=== PATIENT | female | born 1995 | race African-American/Black ===

== ENCOUNTER → 2016-12-12 17:50 | Emergency (ER) | payer OTHER ==
[~2016-12-12] VITALS: Ht 160 cm; Wt 65.0 kg
[~2016-12-12 17:50] MED LIST: ADVAIR 250/501 DISK IH; ALBUTEROL SULF8.5 GM IH; ENDOCET 5-3251 EACH PO; HEMOCYTE324 MG PO; IBUPROFEN800 MG PO; IRON PO; IRON325 M1 PO; IRON325 MG PO; LEVETIRACETAM500 MG PO; MACROBID100 MG PO; METRONIDAZOLE500 MG PO; MOTRIN600 MG PO; Motrin PO; OMEPRAZOLE40 M1 PO; PERCOCET 5/31 TABLET PO; PRENATAL TABLE1 EAC3 PO; Percocet 5/325,Endoc PO; TESSALON PERLE100 MG PO; Theragran PO; ZITHROMAX Z-PA250 MG PO; ZOFRAN ODT4 MG PO; ZOFRAN4 MG PO
[2016-12-12 17:58] VITALS: BP 127/77
== END | disposition left against medical advice (07) ==
LOC: EME 17:50
DX: R45.83 Excessive crying of child, adolescent or adult (principal); Z53.21 Procedure and treatment not carried out due to patient leaving prior to being seen by health care provider

== ENCOUNTER 2017-04-14 09:23 | Emergency (ER) | payer OTHER ==
[~2017-04-14] VITALS: Ht 162.6 cm; Wt 66.6 kg
[2017-04-14 10:58] VITALS: BP 112/68
== END 2017-04-14 10:59 | disposition home or self-care (01) ==
LOC: EME 09:23
DX: F41.9 Anxiety disorder, unspecified (principal); F33.1 Major depressive disorder, recurrent, moderate; Z91.19 Patient's noncompliance with other medical treatment and regimen; J45.909 Unspecified asthma, uncomplicated
CPT/HCPCS: 90839; 99281; 99284

== ENCOUNTER 2017-04-27 10:14 | Emergency (ER) | payer OTHER ==
[~2017-04-27] VITALS: Ht 162.6 cm; Wt 65.0 kg
[2017-04-27 12:12] LABS: HEMATOCRIT 34.7 % (36.0-46.0); MCH 28.3 PG (29.0-34.0); MCHC 32.3 G/DL (30.0-36.0); MCV 87.6 FL (83-99); MEAN PLAT.VOLUME 13.5 uM^3 (9.5-12.4); PLATELET COUNT 140 K/uL (156-360); RBC DIS.WIDTH-CV 13.5 % (11.8-14.6); RBC DIS.WIDTH-SD 43.4 % (39-53); RED BLOOD COUNT 3.96 M/uL (3.80-5.20); WHITE BLOOD COUNT 5.2 K/uL (4.1-10.2)
[2017-04-27 12:21] LABS: ADD MIUA? YES; BILIRUBIN NEGATIVE; BLOOD NEGATIVE; COLOR YELLOW ((YELLOW)); GLUCOSE (STRIP) NEGATIVE; KETONES 5; LEUKOCYTES NEGATIVE; NITRITE NEGATIVE; PROTEIN (STRIP) 30; SPECIFIC GRAVITY 1.024 (1.000-1.030)
[2017-04-27 12:22] LABS: CHLORIDE 106 mEq/L (99-109); POTASSIUM 3.4 mEq/L (3.7-5.4); SODIUM 138 mEq/L (136-147)
[2017-04-27 12:24] LABS: GLUCOSE 88 mg/dL (70-99)
[2017-04-27 12:25] LABS: ANION GAP 7 MEQ/L (2-14)
[2017-04-27 12:28] LABS: GFR ESTIMATE (CALCULATED) > 59 mL/min/; UREA NITROGEN (BUN) 5 mg/dL (9-23)
[2017-04-27 12:34] LABS: BACTERIA RARE /HPF; EPITHELIAL CELLS RARE /HPF; MUCUS 4+ /LPF; RED BLOOD CELLS 0-5 /HPF (0-5); WHITE BLOOD CELLS 0-5 /HPF (0-5)
[2017-04-27] MEDS ORDERED: ZOFRAN ODT4 MG PO (12:40)
[2017-04-27] MEDS ORDERED: TESSALON PERLE100 MG PO (12:40)
[2017-04-27 12:41] LABS: QUANTITATIVE HCG < 4.0 MIU/ML
[2017-04-27 13:39] VITALS: BP 112/78
== END 2017-04-27 13:40 | disposition home or self-care (01) ==
LOC: EME 10:14
PROVIDERS: Nurse Practitioner Family
DX: R11.0 Nausea (principal); R42 Dizziness and giddiness; G40.909 Epilepsy, unspecified, not intractable, without status epilepticus
CPT/HCPCS: 71020; 80048; 81003; 84702; 85027; 94640; 99281; 99284; J2405; J7030

== ENCOUNTER 2017-11-16 11:46 | Emergency (ER) | payer OTHER ==
[~2017-11-16] VITALS: Ht 162.6 cm; Wt 55.9 kg
[2017-11-16] MEDS ORDERED: LIDODERM 5% P1 PATCH TD (14:35)
[2017-11-16 14:47] VITALS: BP 96/52
== END 2017-11-16 14:47 | disposition home or self-care (01) ==
LOC: EME 11:46
DX: S30.0XXA Contusion of lower back and pelvis, initial encounter (principal); W10.9XXA Fall (on) (from) unspecified stairs and steps, initial encounter; Y92.009 Unspecified place in unspecified non-institutional (private) residence as the place of occurrence of the external cause; Z33.1 Pregnant state, incidental; Z3A.16 16 weeks gestation of pregnancy
CPT/HCPCS: 99281; 99283

== ENCOUNTER 2017-11-25 22:55 | Emergency (ER) | payer OTHER ==
[~2017-11-25] VITALS: Ht 160 cm; Wt 57.4 kg
[~2017-11-25 22:55] MED LIST changes: +LIDODERM 5% P1 PATCH TD
[2017-11-26 00:51] VITALS: BP 101/62
[2017-11-26] MEDS ORDERED: ATIVAN1 MG PO (01:36)
== END 2017-11-26 01:57 | disposition home or self-care (01) ==
LOC: EME 22:55
DX: O99.342 Other mental disorders complicating pregnancy, second trimester (principal); F32.9 Major depressive disorder, single episode, unspecified; O9A.212 Injury, poisoning and certain other consequences of external causes complicating pregnancy, second trimester; S60.222A Contusion of left hand, initial encounter; S60.221A Contusion of right hand, initial encounter; W22.8XXA Striking against or struck by other objects, initial encounter; O99.332 Smoking (tobacco) complicating pregnancy, second trimester; F17.200 Nicotine dependence, unspecified, uncomplicated; R51 Headache; R10.9 Unspecified abdominal pain; Z3A.17 17 weeks gestation of pregnancy
CPT/HCPCS: 99281; 99284

== ENCOUNTER 2018-01-29 14:24 | Outpatient (CLI) | payer OTHER ==
[~2018-01-29] VITALS: Ht 160 cm; Wt 62.6 kg
[~2018-01-29 14:24] MED LIST changes: +ATIVAN1 MG PO
[2018-01-29 14:30] VITALS: BP 114/68
[2018-01-29 15:42] LABS: HEMATOCRIT 31.7 % (36.0-46.0); HEMOGLOBIN 10.6 G/DL (11.9-15.5); MCH 30.1 PG (29.0-34.0); MCHC 33.4 G/DL (30.0-36.0); MCV 90.1 FL (83-99); PLATELET COUNT 123 K/uL (156-360); RBC DIS.WIDTH-CV 14.5 % (11.8-14.6); RBC DIS.WIDTH-SD 47.3 % (39-53); RED BLOOD COUNT 3.52 M/uL (3.80-5.20); WHITE BLOOD COUNT 7.9 K/uL (4.1-10.2)
[2018-01-29 15:52] LABS: ALBUMIN 3.8 g/dL (3.2-4.8); CHLORIDE 109 mEq/L (99-109); POTASSIUM 3.6 mEq/L (3.7-5.4); SODIUM 138 mEq/L (136-147)
[2018-01-29 15:54] LABS: GLUCOSE 100 mg/dL (70-99); TOTAL PROTEIN 7.1 g/dL (6.4-8.3)
[2018-01-29 15:56] LABS: TOTAL BILIRUBIN 0.3 mg/dL (0.0-1.0)
[2018-01-29 15:57] LABS: SERUM ETHYL ALCOHOL < 10 mg/dL
[2018-01-29 15:58] LABS: ALKALINE PHOSPHATASE 75 IU/L (3-129); CREATININE 0.6 mg/dL (0.6-1.3); GFR ESTIMATE (CALCULATED) > 59 mL/min/
[2018-01-29 15:59] LABS: UREA NITROGEN (BUN) 7 mg/dL (9-23)
[2018-01-29 16:00] LABS: AST (GOT) 23 IU/L (2-34)
[2018-01-29 16:01] LABS: ALT (GPT) 16 IU/L (3-49)
[2018-01-29 19:41] LABS: APPEARANCE SL.HAZY ((CLEAR)); BILIRUBIN NEGATIVE; BLOOD NEGATIVE; COLOR YELLOW ((YELLOW)); GLUCOSE (STRIP) NEGATIVE; KETONES 80; LEUKOCYTES TRACE; NITRITE NEGATIVE; PROTEIN (STRIP) NEGATIVE; SPECIFIC GRAVITY 1.017 (1.000-1.030); UROBILINOGEN 0.2 MG/DL (0.2-1.0)
[2018-01-29 19:48] LABS: BACTERIA RARE /HPF; EPITHELIAL CELLS 1+ /HPF; MUCUS 1+ /LPF; RED BLOOD CELLS 0-5 /HPF (0-5); WHITE BLOOD CELLS 0-5 /HPF (0-5)
[2018-01-29 20:02] LABS: AMPHETAMINE NEGATIVE (500 ng/mL); BARBITURATES NEGATIVE (200 ng/mL); BENZODIAZEPINES NEGATIVE (150 ng/mL); BUPRENORPHINE NEGATIVE (10 ng/mL); COCAINE NEGATIVE (150 ng/mL); METHADONE NEGATIVE (200 ng/mL); METHAMPHETAMINE NEGATIVE (500 ng/mL); OPIATES (MORPHINE) NEGATIVE (100 ng/mL); OXYCODONE NEGATIVE (100 ng/mL); PHENCYCLIDINE NEGATIVE (25 ng/mL); PROPOXYPHENE NEGATIVE (300 ng/mL); THC CANNABINOIDS PRESUMPTIVE POSITIVE (50 ng/mL); TRICYCLIC ANTIDEPRESSANTS NEGATIVE (300 ng/mL)
== END 2018-01-29 18:10 | disposition home or self-care (01) ==
LOC: LDRP-OP 14:24 → EME 14:24 → EDSTATUS 16:19 → 2WEST 16:20
PROVIDERS: Emergency Medicine
DX: O47.02 False labor before 37 completed weeks of gestation, second trimester (principal); Z3A.26 26 weeks gestation of pregnancy; O99.352 Diseases of the nervous system complicating pregnancy, second trimester; G40.909 Epilepsy, unspecified, not intractable, without status epilepticus; O99.323 Drug use complicating pregnancy, third trimester; F12.90 Cannabis use, unspecified, uncomplicated; O99.342 Other mental disorders complicating pregnancy, second trimester; F32.9 Major depressive disorder, single episode, unspecified; F43.10 Post-traumatic stress disorder, unspecified; O99.512 Diseases of the respiratory system complicating pregnancy, second trimester; J45.909 Unspecified asthma, uncomplicated; Z87.440 Personal history of urinary (tract) infections
CPT/HCPCS: 59025; 80053; 81003; 84999; 85027; 87086; G0378; G0480

== ENCOUNTER 2018-01-29 18:16 | Emergency (ER) | payer OTHER ==
[~2018-01-29] VITALS: Ht 160 cm; Wt 60.4 kg
[2018-01-29 21:03] VITALS: BP 107/56
== END 2018-01-29 21:07 | disposition home or self-care (01) ==
LOC: EME 18:16
DX: O99.342 Other mental disorders complicating pregnancy, second trimester (principal); F33.1 Major depressive disorder, recurrent, moderate; O99.332 Smoking (tobacco) complicating pregnancy, second trimester; F17.200 Nicotine dependence, unspecified, uncomplicated
CPT/HCPCS: 90839; 99281; 99285

== ENCOUNTER 2018-02-13 21:37 | Outpatient (CLI) | payer OTHER ==
[2018-02-13 21:56] VITALS: BP 108/55
[2018-02-13] MEDS ORDERED: PRENATAL TABLE1 EAC3 PO (22:13)
== END 2018-02-13 22:45 | disposition home or self-care (01) ==
LOC: LDRP-OP 21:37 → 2WEST 21:39 → LDRP-OP 06-02 18:36
DX: O26.893 Other specified pregnancy related conditions, third trimester (principal); O99.343 Other mental disorders complicating pregnancy, third trimester; F41.9 Anxiety disorder, unspecified; F31.9 Bipolar disorder, unspecified; O99.353 Diseases of the nervous system complicating pregnancy, third trimester; G40.909 Epilepsy, unspecified, not intractable, without status epilepticus; G47.30 Sleep apnea, unspecified; Z3A.28 28 weeks gestation of pregnancy
CPT/HCPCS: 59025; G0378

== ENCOUNTER 2018-04-19 17:08 | Outpatient (CLI) | payer OTHER ==
[~2018-04-19] VITALS: Ht 160 cm; Wt 63.5 kg
[2018-04-19] MEDS ORDERED: KEPPRA500 MG PO (17:28)
[2018-04-19] MEDS ORDERED: FEOSOL325 MG PO (17:29)
[2018-04-19] MEDS ORDERED: PROAIR RESPICL90 MCG IH (17:30)
[2018-04-19 17:37] VITALS: BP 121/64
[2018-04-19 18:13] VITALS: BP 98/53
[2018-04-19 19:25] LABS: APPEARANCE SL.HAZY ((CLEAR)); BILIRUBIN NEGATIVE; BLOOD SMALL; COLOR YELLOW ((YELLOW)); GLUCOSE (STRIP) NEGATIVE; KETONES NEGATIVE; LEUKOCYTES NEGATIVE; NITRITE NEGATIVE; PROTEIN (STRIP) NEGATIVE; SPECIFIC GRAVITY 1.014 (1.000-1.030); UROBILINOGEN 0.2 MG/DL (0.2-1.0)
[2018-04-19 19:44] LABS: CANDIDA DNA PROBE POSITIVE; GARDNERELLA DNA PROBE NEGATIVE; TRICHOMONAS DNA PROBE NEGATIVE
[2018-04-19 19:57] VITALS: BP 121/68
[2018-04-19 19:59] LABS: BACTERIA RARE /HPF; EPITHELIAL CELLS RARE /HPF; MUCUS TRACE /LPF; UCUL ADDED? NO; WHITE BLOOD CELLS 0-5 /HPF (0-5)
[2018-04-19 22:37] VITALS: BP 121/71
[2018-04-20 01:36] VITALS: BP 123/73
[2018-04-20 04:23] VITALS: BP 104/57
[2018-04-21 08:11] LABS: SOURCE URINE
== END 2018-04-20 09:20 | disposition home or self-care (01) ==
LOC: LDRP-OP 17:08 → 2WEST 17:10 → LDRP-OP 06-02 00:06
PROVIDERS: Midwife; Obstetrics & Gynecology
DX: O46.93 Antepartum hemorrhage, unspecified, third trimester (principal); O99.353 Diseases of the nervous system complicating pregnancy, third trimester; O99.343 Other mental disorders complicating pregnancy, third trimester; O26.893 Other specified pregnancy related conditions, third trimester; G40.909 Epilepsy, unspecified, not intractable, without status epilepticus; F41.8 Other specified anxiety disorders; F43.10 Post-traumatic stress disorder, unspecified; G47.30 Sleep apnea, unspecified; N87.0 Mild cervical dysplasia; J45.909 Unspecified asthma, uncomplicated; Z3A.38 38 weeks gestation of pregnancy
CPT/HCPCS: 59025; 76805; 81003; 87480; 87491; 87510; 87591; 87660; G0378; J2405

== ENCOUNTER 2018-04-24 10:23 | Inpatient (IN) | payer OTHER ==
[~2018-04-24] VITALS: Ht 160 cm; Wt 65.7 kg
[2018-04-24] VITALS (17 sets, daily range): BP systolic 89–122; BP diastolic 53–78
[~2018-04-24 10:23] MED LIST changes: +FEOSOL325 MG PO; +KEPPRA500 MG PO; +PROAIR RESPICL90 MCG IH
[2018-04-24 11:24] LABS: BASOPHIL (%) 0.1 % (0-1); EOSINOPHIL (%) 0.1 % (0-5); HEMATOCRIT 29.6 % (36.0-46.0); HEMOGLOBIN 9.8 G/DL (11.9-15.5); IMMATURE GRANULOCYTE (%) 0.4 % (0.0-0.7); LYMPHOCYTE (%) 15.8 % (15-42); LYMPHOCYTE COUNT 1.3 K/uL (1.0-2.8); MCH 29.5 PG (29.0-34.0); MCHC 33.1 G/DL (30.0-36.0); MCV 89.2 FL (83-99); MONOCYTE (%) 4.5 % (3-12); MONOCYTE COUNT 0.4 K/uL (0-0.8); NEUTROPHIL (%) 79.1 % (45-76); NEUTROPHIL COUNT 6.5 K/uL (1.8-6.4); PLATELET COUNT 85 K/uL (156-360); RBC DIS.WIDTH-CV 14.1 % (11.8-14.6); RBC DIS.WIDTH-SD 45.1 % (39-53); RED BLOOD COUNT 3.32 M/uL (3.80-5.20); WHITE BLOOD COUNT 8.2 K/uL (4.1-10.2)
[2018-04-24 11:35] LABS: AMPHETAMINE NEGATIVE (500 ng/mL); BARBITURATES NEGATIVE (200 ng/mL); BENZODIAZEPINES NEGATIVE (150 ng/mL); BUPRENORPHINE NEGATIVE (10 ng/mL); COCAINE NEGATIVE (150 ng/mL); METHADONE NEGATIVE (200 ng/mL); METHAMPHETAMINE NEGATIVE (500 ng/mL); OPIATES (MORPHINE) NEGATIVE (100 ng/mL); OXYCODONE NEGATIVE (100 ng/mL); PHENCYCLIDINE NEGATIVE (25 ng/mL); PROPOXYPHENE NEGATIVE (300 ng/mL); THC CANNABINOIDS PRESUMPTIVE POSITIVE (50 ng/mL); TRICYCLIC ANTIDEPRESSANTS NEGATIVE (300 ng/mL)
[2018-04-24] MEDS ORDERED: IBUPROFEN800 MG PO (14:35)
[2018-04-25] MEDS ORDERED: ZOLOFT50 MG PO (09:11)
== END 2018-04-25 20:57 | disposition home or self-care (01) | DRG 775 ==
LOC: LDRP-OP 10:23 → 2WEST 10:24 → LDRP-OP 06-02 09:46
PROVIDERS: Advanced Practice Midwife
DX: O36.8130 Decreased fetal movements, third trimester, not applicable or unspecified (principal); O99.324 Drug use complicating childbirth; F12.90 Cannabis use, unspecified, uncomplicated; O99.12 Other diseases of the blood and blood-forming organs and certain disorders involving the immune mechanism complicating childbirth; D69.59 Other secondary thrombocytopenia; O99.52 Diseases of the respiratory system complicating childbirth; G47.30 Sleep apnea, unspecified; J45.909 Unspecified asthma, uncomplicated; O99.344 Other mental disorders complicating childbirth; F41.9 Anxiety disorder, unspecified; F31.9 Bipolar disorder, unspecified; F43.10 Post-traumatic stress disorder, unspecified; O99.354 Diseases of the nervous system complicating childbirth; G40.909 Epilepsy, unspecified, not intractable, without status epilepticus; Z91.14 Patient's other noncompliance with medication regimen; Z3A.38 38 weeks gestation of pregnancy; Z37.0 Single live birth
CPT/HCPCS: 84999; 85025; 94660; C1755; J1050; J3010; J7120